=== PATIENT | female | born 1995 | race African-American/Black ===

== ENCOUNTER 2023-10-22 17:59 | Emergency (ER) | payer MEDICAID ==
[~2023-10-22] VITALS: Ht 165.1 cm; Wt 91.0 kg
[2023-10-22 18:19] VITALS: O2SAT 99
[2023-10-22] MEDS ORDERED: AMOX-494 MT (18:48)
[2023-10-22 19:36] VITALS: BP 118/55; PULSE 96; RESP 20; TEMP 98.9
== END 2023-10-22 19:37 | disposition home or self-care (01) ==
LOC: ER 18:12
DX: J02.9 Acute pharyngitis, unspecified (principal); R13.10 Dysphagia, unspecified
CPT/HCPCS: 87430; 99283